=== PATIENT | female | born 1940 | race Two or more races ===

== ENCOUNTER 2025-01-13 05:56 | Emergency (ER) | payer OTHER ==
[~2025-01-13] VITALS: Ht 152.4 cm; Wt 52.2 kg
[2025-01-13] MEDS ORDERED: NORVASC5 MG PO (06:26)
[2025-01-13] MEDS ORDERED: CHLORTHALIDONE25 MG PO (06:26)
[2025-01-13] MEDS ORDERED: PLAVIX75 MG PO (06:27)
[2025-01-13] MEDS ORDERED: TOPROL XL25 M1 PO (06:27)
[2025-01-13] MEDS ORDERED: ATIVAN2 M1 PO (06:27)
[2025-01-13] MEDS ORDERED: CLONIDINE HCL 0.1 MG TABLET PO STA (08:33)
[2025-01-13] MEDS ORDERED: CLONIDINE HCL 0.1 MG TABLET PO ONE (08:45)
[2025-01-13 08:58] LABS: HEMATOCRIT 39.2 % (36.0-45.00); HEMOGLOBIN 12.9 g/dL (12.0-15.00); MEAN CELL VOLUME 83.3 fL (80.00-100.00); MEAN CORPUSCULAR HEMOGLOBIN 27.4 pg (27.00-32.0); MEAN CORPUSCULAR HGB CONC 32.9 g/dl (32.0-36.0); PLATELET COUNT 223 K/uL (150-450); RED CELL DISTRIBUTION WIDTH 15.8 % (11.5-14.5)
[2025-01-13 09:29] LABS: CALCIUM 9.6 mg/dL (8.5-10.1); CREATININE SERUM 0.48 mg/dL (0.55-1.02); GFR 122.63; POTASSIUM 3.71 mEq/L (3.5-5.1)
[2025-01-13 10:33] LABS: PH,URINE 6.5 (5.0-8.0); URINE APPEARANCE Clear; URINE BILIRRUBIN Negative (NEGATIVE); URINE BLOOD Trace; URINE COLOR Yellow; URINE GLUCOSE Negative (NEGATIVE); URINE KETONE Negative (NEGATIVE); URINE LEUKOCYTE Negative; URINE NITRATE Negative; URINE PROTEIN 30 (NEGATIVE); URINE UROBILINOGEN 0.2 E.U./dl
[2025-01-13 10:37] LABS: URINE EPITHELIAL CELLS 3.1 uL (0.0-38.8); URINE RBC 13.8 uL (0.0-20.8); URINE WBC 15.1 uL (0.0-23.2)
[2025-01-13 10:48] LABS: URINE BACTERIA > 9821.5 uL (0.0-1933)
== END 2025-01-13 13:09 | disposition home or self-care (01) ==
LOC: ER 05:57
PROVIDERS: General Practice
DX: N39.0 Urinary tract infection, site not specified (principal); R42 Dizziness and giddiness; I10 Essential (primary) hypertension; Z88.0 Allergy status to penicillin; Z88.6 Allergy status to analgesic agent